=== PATIENT | female | born 1990 | race Caucasian/White ===

== ENCOUNTER 2016-05-03 03:16 | Inpatient (IN) | payer BC ==
[~2016-05-03] VITALS: Ht 172.7 cm; Wt 91.5 kg
[~2016-05-03 03:16] MED LIST: PRENTAB26 PO
[2016-05-03 08:05] VITALS: Ht 172.7 cm; Wt 91.5 kg
[2016-05-03] MEDS ORDERED: LACTATED RINGER'S 1000ML 1,000 ML IV PRN (08:20)
[2016-05-03] MEDS ORDERED: LACTATED RINGER'S 1000ML 500 ML IV PRN ×2 (08:28→15:52)
[2016-05-03] MEDS ORDERED: OXYTOCIN 30 UNITS/500ML NSS IV PRN ×2 (08:30→22:00)
[2016-05-03 08:53] LABS: HEMATOCRIT 36.5 % (37-47); MEAN CORPUSCULAR HEMOGLOBIN 30.4 pg (25-34); MEAN CORPUSCULAR HGB CONC 34.5 g/dl (32-36); MEAN PLATELET VOLUME 11.2 fL (7.4-10.4); PLATELET COUNT 233 K/uL (130-400); RED BLOOD COUNT 4.15 M/uL (4.2-5.4); WHITE BLOOD COUNT 17.58 K/uL (4.8-10.8)
[2016-05-03] MEDS: LACTATED RINGER'S 1000ML 1,000 ML IV SCH ×3 (08:55→15:31)
--- NOTE | 2016-05-03 08:59 | HISTORY & PHYSICAL EXAMINATION ---
DATE OF ADMISSION: 05/03/2016 CHIEF COMPLAINT: Scheduled induction of labor at term for gestational diabetes. HISTORY OF PRESENT ILLNESS: The patient is a 26-year-old G1, P0 at 40 weeks of gestation who was scheduled for induction of labor at term due to gestational diabetes, uncontrolled with diet, and the patient declined medication. The patient has no complaints, no contractions, leakage of fluid, or vaginal bleeding. She reports good movements. She denies headache, change in her vision, nausea, vomiting, epigastric or right upper quadrant pain. Her has been complicated by: 1. Tobacco smoking. She smokes half a pack per day. 2. Gestational diabetes. Her 50 gram Glucola screening test was 208. She was started diet and her fingersticks were elevated despite diet and she was recommended to start glyburide 2.5 mg at night. Despite multiple reminders, the patient has not started the glyburide. She has not taken her fingersticks for the last 2 weeks. PAST MEDICAL HISTORY: The patient denies any medical problems. The patient denies any history of anxiety or depression ( noted in her records). PAST SURGICAL HISTORY: Left knee surgery in 2008. MEDICATIONS: vitamins and Tums as needed. ALLERGIES: AUGMENTIN CAUSES SEIZURE. SOCIAL HISTORY: The patient smokes half pack a day. She declines alcohol or drug use. GYNECOLOGIC HISTORY: The patient denies any history of STDs including Chlamydia, gonorrhea, or herpes. LABORATORIES: Her blood type is A positive, antibody screen negative. H\T\H was 15/43, platelets 248. Rubella titer positive, RPR nonreactive, hepatitis B surface antigen negative. GC chlamydia cultures were negative. Repeat H\T\H was 12/35, platelets 206. One hour Glucola was 208 mg per deciliter, and GBS culture was negative on 04/15/2016. PHYSICAL EXAMINATION: GENERAL: The patient is alert, oriented x3, not in acute distress. VITAL SIGNS: Blood pressure is 138/81, temperature 98.5 fahrenheit, pulse 96, respiration 20. CARDIOVASCULAR SYSTEM: S1, S2, RRR. LUNGS: Clear to auscultation bilaterally. ABDOMEN: Soft, gravid, Adan 8 pounds. EXTREMITIES: Nontender, no edema. PELVIC: Cervix is 2 cm dilated, 60% effaced, -2 with bulging membranes and vertex. heart rate 130s, category 1. Runge contractions every 5-6 minutes. ASSESSMENT AND PLAN: The patient is a 26-year-old G1, P0 at 40 weeks of gestation with gestational diabetes, not controlled with diet, declined medical therapy and problems with compliance ( has not been checking fingersticks for the last 2 weeks. Vital signs stable, afebrile. GBS negative. heart rate reassuring. Plan is admit her to start IV fluids, start low dose oxytocin. The patient understands induction may take longer than spontaneous labor and she agrees with the plan. MTDD
[2016-05-03 09:17] LABS: BUN/CREATININE RATIO 14.2 (10-20); CALCIUM 8.8 mg/dl (8.5-10.1); CREATININE 0.59 mg/dl (0.60-1.20); POTASSIUM 3.5 mmol/L (3.5-5.1)
[2016-05-03 09:20] LABS: ALB/GLOB RATIO 0.6 (0.9-2)
[2016-05-03] MEDS ORDERED: EpHEDrine SULFATE INJ 50 MG/ML AMP ONE (14:50)
[2016-05-03] MEDS ORDERED: BUPIVACAINE 0.25% 30 ML VIAL ONE (14:50)
[2016-05-03] MEDS ORDERED: FENTANYL 2MCG/ML ROPIV 1.25MG/ML 100ML BAG EPI ONE (14:51)
[2016-05-03] MEDS ORDERED: FENTANYL CITRATE INJ 50 MCG/1 ML 2 ML VIAL ONE (14:52)
[2016-05-03] MEDS ORDERED: EpHEDrine SULFATE INJ 50 MG/ML AMP IV PRN (16:00)
[2016-05-03] MEDS ORDERED: NALOXONE HCL INJ 0.4 MG/1 ML VIAL/CARP IV PRN (16:00)
[2016-05-03] MEDS ORDERED: FENTANYL 2MCG/ML ROPIV 1.25MG/ML 100ML BAG EPI PRN (16:00)
[2016-05-03] MEDS ORDERED: LACTATED RINGER'S 1000ML 1,000 ML IV SCH (21:56)
[2016-05-03] MEDS ORDERED: ACETAMINOPHEN 325 MG TAB PO PRN (22:00)
[2016-05-03] MEDS ORDERED: OXYCODONE/ACETAMINOPHEN 5-325 TAB PO PRN (22:00)
[2016-05-03] MEDS ORDERED: DIPHTHERIA/TETANUS/PERTUSSIS 0.5 ML SYR/VIAL IM. ONE (22:00)
[2016-05-03] MEDS ORDERED: HYDROCORTISONE ACETATE 25 MG SUPP PR PRN (22:00)
[2016-05-03] MEDS ORDERED: MEASLES, MUMPS & RUBELLA VIRUS VIAL SQ. ONE (22:00)
[2016-05-03] MEDS ORDERED: SUPERCREAM 0.870 % 15GM JAR EXT PRN (22:00)
[2016-05-03] MEDS ORDERED: LANOLIN OINT EXT PRN ×2 (22:00)
[2016-05-03] MEDS ORDERED: BENZOCAINE 20% AER SPR 82.5 GM CAN EXT PRN (22:00)
--- NOTE | 2016-05-03 22:31 | DELIVERY SUMMARY ---
DATE OF OPERATION: 05/03/2016 TIME OF DELIVERY OF BABY: 21:40 p.m. TIME OF DELIVERY OF PLACENTA: 21:51 p.m. DETAILS OF DELIVERY: The patient was found to be fully dilated and desired to push. She pushed for about 55 minutes and delivered the head over an intact perineum. Shoulders were delivered with minimal traction. Baby was handed off to the mother where mouth and nose were suctioned. Cord was clamped x2 and cut. It was a 3-vessel cord. Then cord blood was obtained. The vagina and perineum were checked for lacerations. There was a first degree vaginal laceration on the left lower vaginal wall close to the hymen and there was another first degree laceration on the right labia minora. Those lacerations were repaired with 3 -0 Vicryl in a running fashion. Excellent hemostasis was achieved. The rest of the vagina and perineum were intact and then placenta was found to be in the vagina and delivered spontaneously intact and complete. Uterus was explored and found to be empty. Fundus was firm. Lower segment was cleared of all clots and debris. EBL was 300. Placenta was noted to be bi-lobed, otherwise normal. Mother and baby tolerated the procedure well. Sponge, lap, needle and instrument counts were correct x2. The baby was a viable male infant, Apgars 8/9, weight is pending. No complications happened, and I was present during whole procedure. I attest to the content of the Intraoperative Record and any orders documented therein. Any exceptions are noted below. MTDD
[2016-05-04] VITALS: BP 131/73; PULSE 83; TEMP 36.9
[2016-05-04] MEDS: IBUPROFEN 600 MG TAB PO PRN ×3 (04:26→19:49)
[2016-05-04 04:34] VITALS: BP 124/74; PULSE 63; TEMP 36.7
[2016-05-04 07:08] LABS: HEMATOCRIT 31.2 % (37-47)
--- NOTE | 2016-05-04 08:06 | Anesthesia Procedure Note ---
Anesthesia Epidural Removal Nt Date & Time May 04, 2016 at 08:06 Vital Signs Pain Intensity: 3.0 Vital Signs Past 12 Hours Date Time Temp Pulse Resp B/P Pulse Ox O2 Delivery O2 Flow Rate FiO2 05/04/16 04:34 36.7 63 18 124/74 Room Air 05/04/16 00:00 Room Air 05/04/16 00:00 36.9 83 18 131/73 Room Air Notes Mental Status: alert / awake / arousable, participated in evaluation Nausea / Vomiting: adequately controlled Pain: adequately controlled Airway Patency, RR, SpO2: stable & adequate BP & HR: stable & adequate Hydration State: stable & adequate Neuraxial Anesthesia: was administered, sensory block is resolved Anesthetic Complications: no major complications apparent, pt satisfied with anesthetic care Epidural: removed without complications, with tip intact
[2016-05-04 08:20] VITALS: BP 112/67; PULSE 70; TEMP 36.6; O2SAT 96
[2016-05-04] MEDS: PRENATAL VITAMIN TAB PO SCH (08:20)
[2016-05-04] MEDS: DOCUSATE SODIUM 100 MG CAP PO SCH ×2 (08:20→19:45)
[2016-05-04] MEDS: FERROUS SULFATE 325 MG TAB PO SCH (08:20)
--- NOTE | 2016-05-04 10:16 | OB/GYN Progress Note ---
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 Subjective conversation w/ patient, physical exam Ambulation: ambulating normally Voiding: no voiding problems Passing Gas: Yes Diet Tolerance: Regular Diet Lochia: Moderate Feeding Type: Bottle Feeding Pain: 2/10 Notes: Doing well, no concerns. Pain well controlled. Lochia decreasing. Tolerating regular diet. Ambulating without difficulty. Objective Vital Signs Date Time Temp Pulse Resp B/P Pulse Ox O2 Delivery O2 Flow Rate FiO2 05/04/16 08:20 96 Room Air 05/04/16 08:20 36.6 70 18 112/67 96 Room Air 05/04/16 04:34 36.7 63 18 124/74 Room Air 05/04/16 00:00 Room Air 05/04/16 00:00 36.9 83 18 131/73 Room Air Physical Exam General Appearance: WELL-APPEARING Respiratory/Chest: chest non-tender, lungs clear Cardiovascular: regular rate, rhythm Abdomen: normal bowel sounds, soft Fundus: Firm Extremities: normal range of motion, non-tender, no calf tenderness Laboratory Results Last 24 Hours Test 05/03/16 11:13 05/03/16 13:16 05/03/16 15:16 05/03/16 17:15 Bedside Glucose 80 mg/dl 78 mg/dl 77 mg/dl 71 mg/dl Test 05/03/16 19:13 05/03/16 20:14 05/04/16 06:35 Bedside Glucose 66 mg/dl 75 mg/dl Hemoglobin 10.8 g/dL Hematocrit 31.2 % Assessment and Plan Post- Day Number: 1 Continue Routine Care: -Continue routine care -Anticipate d/c home tomorrow.
[2016-05-04 11:40] VITALS: BP 119/76; PULSE 76; TEMP 36.7; O2SAT 99
[2016-05-04 15:30] VITALS: BP 109/60; PULSE 83; TEMP 36.7
[2016-05-04 19:58] VITALS: BP 120/76; PULSE 96; TEMP 36.6
[2016-05-04] MEDS ORDERED: BISACODYL 5 MG TABEC PO SCH (20:00)
[2016-05-05 00:05] VITALS: BP 112/60; PULSE 65; TEMP 36.5
[2016-05-05] MEDS ORDERED: BISACODYL 10 MG SUPP PR PRN (07:00)
[2016-05-05] MEDS: IBUPROFEN 600 MG TAB PO PRN ×2 (07:07→11:39)
[2016-05-05] MEDS ORDERED: MTR600X PO (07:32)
--- NOTE | 2016-05-05 07:34 | Discharge Instructions ---
Discharge Instructions Admission Reason for Admission: Induction Discharge Discharge Diagnosis / Problem: TERM DELIVERED Discharge Goals Goal(s): Routine recovery after delivery Activity Recommendations Activity Limitations: as noted below Lifting Limitations: gradually increase as tolerated Exercise/Sports Limitations: until after follow-up appointment May Resume Sexual Activity: after follow-up appointment Shower/Bathe: no limitations . Instructions / Follow-Up Instructions / Follow-Up 6 WEEKS Current Hospital Diet Patient's current hospital diet: Regular OB Diet Discharge Diet Recommended Diet: Regular OB Diet Fluid Restriction: None Pending Studies Studies pending at discharge: no Medical Emergencies . Who to Call and When: Medical Emergencies: If at any time you feel your situation is an emergency, please call 911 immediately. . Non-Emergent Contact Non-Emergency issues call your: Primary Care Provider . . "Provider Documentation" section prepared by Vamsi Bess. VTE Core Measure Inpt VTE Proph given/why not?: Treatment not indicated
--- NOTE | 2016-05-05 07:44 | OB/GYN Progress Note ---
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 Subjective conversation w/ patient, physical exam Ambulation: ambulating normally Voiding: no voiding problems Passing Gas: Yes Diet Tolerance: Regular Diet Lochia: Small Feeding Type: Bottle Feeding Objective Vital Signs Date Time Temp Pulse Resp B/P Pulse Ox O2 Delivery O2 Flow Rate FiO2 05/05/16 00:05 Room Air 05/05/16 00:05 36.5 65 18 112/60 Room Air 05/04/16 19:58 36.6 96 18 120/76 Room Air 05/04/16 15:30 36.7 83 16 109/60 Room Air 05/04/16 15:30 Room Air 05/04/16 11:40 36.7 76 16 119/76 99 Room Air 05/04/16 08:20 96 Room Air 05/04/16 08:20 36.6 70 18 112/67 96 Room Air Physical Exam General Appearance: WELL-APPEARING, NO APPARENT DISTRESS Abdomen: non tender, soft Fundus: Firm Extremities: non-tender, normal inspection, no pedal edema Laboratory Results Last 24 Hours Test 05/05/16 07:20 Assessment and Plan Post- Day Number: 2 Continue Routine Care: DISCHARGED
[2016-05-05 07:45] VITALS: O2SAT 98
[2016-05-05 07:52] LABS: HEMATOCRIT 33.4 % (37-47); MEAN CELL VOLUME 87.7 fL (80-100); MEAN CORPUSCULAR HEMOGLOBIN 29.7 pg (25-34); MEAN CORPUSCULAR HGB CONC 33.8 g/dl (32-36); PLATELET COUNT 218 K/uL (130-400); RED BLOOD COUNT 3.81 M/uL (4.2-5.4); WHITE BLOOD COUNT 16.21 K/uL (4.8-10.8)
[2016-05-05 07:59] VITALS: BP 125/75; PULSE 71; TEMP 36.4; O2SAT 98
[2016-05-05] MEDS: DOCUSATE SODIUM 100 MG CAP PO SCH (08:17)
[2016-05-05] MEDS: FERROUS SULFATE 325 MG TAB PO SCH (08:17)
[2016-05-05] MEDS: PRENATAL VITAMIN TAB PO SCH (08:17)
[2016-05-05 11:11] VITALS: BP_DIAS 75; PULSE 71; TEMP 36.4
== END 2016-05-05 12:15 | disposition home or self-care (01) | DRG 775 ==
LOC: C.LD 07:23 → C.OBG 05-04 00:22
PROVIDERS: ADMIT Obstetrics & Gynecology; ATTEND Obstetrics & Gynecology
PROC: 10E0XZZ Delivery of Products of Conception, External Approach (ICD-10-PCS; principal; 2016-05-03)
PROC: 10907ZC Drainage of Amniotic Fluid, Therapeutic from Products of Conception, Via Natural or Artificial Opening (ICD-10-PCS; 2016-05-03)
PROC: 4A1HXCZ Monitoring of Products of Conception, Cardiac Rate, External Approach (ICD-10-PCS; 2016-05-03)
PROC: 0HQ9XZZ Repair Perineum Skin, External Approach (ICD-10-PCS; 2016-05-03)
DX: O24.419 Gestational diabetes mellitus in pregnancy, unspecified control (principal); O99.334 Smoking (tobacco) complicating childbirth; F17.210 Nicotine dependence, cigarettes, uncomplicated; Z91.19 Patient's noncompliance with other medical treatment and regimen; Z3A.40 40 weeks gestation of pregnancy; O76 Abnormality in fetal heart rate and rhythm complicating labor and delivery; Z37.0 Single live birth; O70.0 First degree perineal laceration during delivery; Z88.0 Allergy status to penicillin